=== PATIENT | male | born 1975 | race Caucasian/White ===

== ENCOUNTER 2017-02-11 18:42 | Emergency (ER) | payer MEDICARE, OTHER ==
[2017-02-11 19:04] VITALS: BP 154/60
--- NOTE | 2017-02-11 19:17 | ED Physician Documentation ---
Eye Problem - HPI Stated Complaint: L EYE LID SWELLING Chief Complaint: Eye Problems Additional Information: 41 yo M with h/o HTn and ESRD currently on HD who present with left upper lid swelling and redness that started Thursday 4 days ago but worsen the last 24 hours. No fever or chills reported. Pt denies any trauma or fall. No visual changes. Onset: days ago Associated symptoms: pain, eyelid swelling Location: left eye (left upper eyelid) Severity: moderate Apparent Injury: no Where: home Further Comments: no - ROS CONST: no problems CVS/RESP: none EYES/ENT: none - PAST HX Past History: hypertension, other (ESRD) Allergies/Adverse Reactions: Allergies Allergy/AdvReac Type Severity Reaction Status Date / Time docusate Allergy Verified 02/11/17 19:14 Home Medications: Ambulatory Orders Medication Instructions Recorded Sevelamer Carbonate [Renvela] 2,400 mg PO TID 01/21/13 Aspirin [Cuauhtemoc] 81 mg PO QD 12/19/13 Bisacodyl [Bisacodyl] 5 mg PO DAILY PRN 12/19/13 Isosorbide Mononitrate [Imdur] 30 mg PO DAILY 12/19/13 Albuterol Sulfate [Proair 90 mcg IH QID 02/11/17 Respiclick] Nitroglycerin [Nitroquick] 0.4 mg SL Q5M PRN 02/11/17 - SOCIAL HX Smoking History: cigarettes Drug Use: none - FAMILY HX Family History: none - VITAL SIGNS Vital Signs: Vital Signs Temp Pulse Resp BP Pulse Ox 62 18 154/60 98 02/11/17 18:42 02/11/17 18:42 02/11/17 18:42 02/11/17 18:42 - REVIEWED ASSESSMENTS Nursing Assessment Reviewed: Yes Vitals Reviewed: Yes Progress - Progress Progress: left upper eye lid swelling with erythema consistent with stye-- will go ahead and treat with antibiotics and warm compress Eye Problem Physical Exam - Physical Exam General Appearance: no acute distress Examined with Slit Lamp: No Eyelids: other (left upper lid erythema with swellings) Conjunctiva and Sclera: nml inspection Corneas: nml inspection EOM: intact Pupils: equal Head/ENT: nml inspection Skin: skin rash (left eyelid) Neck/Back: nml inspection Respiratory: no resp distress CVS: reg rate & rhythm Abdomen: non-tender Neuro/Psych: oriented x3 Discharge Clincal Impression: Hordeolum externum (stye) Qualifiers: Laterality: left Eyelid: upper Qualified Code(s): H00.014 - Hordeolum externum left upper eyelid Referrals: Milton Davis MD [Primary Care Provider] - 2 Days Home Medications: Ambulatory Orders Sevelamer Carbonate [Renvela] 2,400 mg PO TID 01/21/13 Aspirin [Cuauhtemoc] 81 mg PO QD 12/19/13 Bisacodyl [Bisacodyl] 5 mg PO DAILY PRN 12/19/13 Isosorbide Mononitrate [Imdur] 30 mg PO DAILY 12/19/13 Albuterol Sulfate [Proair Respiclick] 90 mcg IH QID 02/11/17 Nitroglycerin [Nitroquick] 0.4 mg SL Q5M PRN 02/11/17 Condition: Good Disposition: 01 HOME, SELF-CARE Decision to Admit: NO Decision Time: 19:21
== END 2017-02-11 19:20 | disposition home or self-care (01) ==
LOC: ED 18:42
DX: H00.014 Hordeolum externum left upper eyelid (principal)
CPT/HCPCS: 99283

== ENCOUNTER 2017-05-19 10:55 | Outpatient (CLI) | payer MEDICARE, OTHER | END 2017-05-19 14:06 | LOC: CARD 10:55 | PROVIDERS: ATTEND Internal Medicine Cardiovascular Disease | DX: I25.5 Ischemic cardiomyopathy (principal); F17.219 Nicotine dependence, cigarettes, with unspecified nicotine-induced disorders; E78.5 Hyperlipidemia, unspecified; I10 Essential (primary) hypertension; I12.9 Hypertensive chronic kidney disease with stage 1 through stage 4 chronic kidney disease, or unspecified chronic kidney disease; N18.9 Chronic kidney disease, unspecified; J44.9 Chronic obstructive pulmonary disease, unspecified | CPT/HCPCS: G0463 ==

== ENCOUNTER 2017-10-22 14:55 | Emergency (ER) | payer MEDICARE, OTHER ==
--- NOTE | 2017-10-22 14:59 | ED Physician Documentation ---
General Adult - HISTORIAN Historian: patient - HPI Stated Complaint: sore on abdomen Chief Complaint: General Adult Onset: days ago Timing: still present Severity: mild Further Comments: yes (Pt is a 42 yo male on hemodialysis, who has a small abscess on his abdomen that he noticed a few days ago. Pt has had no systemic sx and has used no meds for this.) - ROS CONST: no problems EYES/ENT: none CVS/RESP: none GI/: none MS/SKIN/LYMPH: other (lesion on abdomen) - PAST HX Past History: other (COPD, heart dz, HLD, HTN, renal dialysis) Allergies/Adverse Reactions: Allergies Allergy/AdvReac Type Severity Reaction Status Date / Time docusate Allergy Verified 02/11/17 19:14 Home Medications: Ambulatory Orders Medication Instructions Recorded Sevelamer Carbonate [Renvela] 2,400 mg PO TID 01/21/13 Aspirin [Cuauhtemoc] 81 mg PO QD 12/19/13 Bisacodyl [Bisacodyl] 5 mg PO DAILY PRN 12/19/13 Isosorbide Mononitrate [Imdur] 30 mg PO DAILY 12/19/13 Albuterol Sulfate [Proair 90 mcg IH QID 02/11/17 Respiclick] Nitroglycerin [Nitroquick] 0.4 mg SL Q5M PRN 02/11/17 - SOCIAL HX Smoking History: cigarettes - FAMILY HX Family History: No - VITAL SIGNS Vital Signs: Vital Signs Temp Pulse Resp BP Pulse Ox 154/60 02/11/17 19:20 - REVIEWED ASSESSMENTS Nursing Assessment Reviewed: Yes Vitals Reviewed: Yes Progress - Progress Progress: Topical abx to abd lesion 3x/daily x 7-10 days. General Adult Physical Exam - PHYSICAL EXAM GENERAL APPEARANCE: no distress NECK: normal inspection, supple RESPIRATORY: no resp distress, chest non-tender, breath sounds normal CVS: reg rate & rhythm, heart sounds normal ABDOMEN: soft, no organomegaly, normal bowel sounds BACK: normal inspection, no CVA tenderness SKIN: other (small, superficial, 1 cm abscess on L abdomen wall.) EXTREMITIES: non-tender, normal range of motion, no evidence of injury NEURO: oriented X3, motor nml, sensation nml Discharge Clincal Impression: small, superficial abscess on abdomen Referrals: Page Damon MD [Primary Care Provider] - Condition: Good Disposition: 01 HOME, SELF-CARE Decision to Admit: NO Decision Time: 15:14
[2017-10-22 15:31] VITALS: BP 150/68
== END 2017-10-22 15:30 | disposition home or self-care (01) ==
LOC: ED 14:55
DX: L02.211 Cutaneous abscess of abdominal wall (principal); Z99.2 Dependence on renal dialysis
CPT/HCPCS: 99282

== ENCOUNTER 2017-10-30 18:07 | Emergency (ER) | payer MEDICARE, OTHER ==
--- NOTE | 2017-10-30 18:27 | ED Physician Documentation ---
Ear Complaints - HISTORIAN Historian: patient - HPI Chief Complaint: Earache Further Comments: yes (42 year old male patient presents with complaint of "having trouble hearing". 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.) - ROS CONST: denies: no problems, recent illness, eye redness, eye itching, other CVS/RESP: none GI/: denies: black stools, nausea, vomiting, other MS/SKIN/LYMPH: none All Systems -: Yes - PAST HX Past History: other (ESRD on dialysis, [place], HTN, COPD) Allergies/Adverse Reactions: Allergies Allergy/AdvReac Type Severity Reaction Status Date / Time docusate Allergy Verified 10/30/17 18:29 Home Medications: Ambulatory Orders Medication Instructions Recorded Sevelamer Carbonate [Renvela] 2,400 mg PO TID 01/21/13 Aspirin [Cuauhtemoc] 81 mg PO QD 12/19/13 Bisacodyl [Bisacodyl] 5 mg PO DAILY PRN 12/19/13 Isosorbide Mononitrate [Imdur] 30 mg PO DAILY 12/19/13 Albuterol Sulfate [Proair 90 mcg IH QID 02/11/17 Respiclick] Nitroglycerin [Nitroquick] 0.4 mg SL Q5M PRN 02/11/17 - SOCIAL HX Smoking History: cigarettes - FAMILY HX Family History: No - VITAL SIGNS Vital Signs: Vital Signs Temp Pulse Resp BP Pulse Ox 150/68 10/22/17 15:30 - REVIEWED ASSESSMENTS Nursing Assessment Reviewed: Yes Vitals Reviewed: Yes Ear Complaint Physical Exam - EXAM General Appearance: no acute distress, alert Ear: auricle nml, 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
[2017-10-30 18:29] VITALS: BP 169/99
== END 2017-10-30 18:32 | disposition home or self-care (01) ==
LOC: ED 18:07
DX: H91.93 Unspecified hearing loss, bilateral (principal)
CPT/HCPCS: 99282

== ENCOUNTER 2018-04-06 08:00 | Emergency (ER) | payer MEDICARE, OTHER ==
[2018-04-06 08:19] VITALS: BP 160/107
--- NOTE | 2018-04-06 08:23 | ED Physician Documentation ---
General Adult - HISTORIAN Historian: patient - HPI Stated Complaint: R cheek pain Chief Complaint: General Adult Additional Information: 5 day history of a skin swelling. Has developed a nodule to the right cheek area. No fever or chills noted. Onset: days ago Timing: still present - ROS CONST: no problems. denies: fever, chills - PAST HX Past History: COPD, hypertension, renal disease (on dialysis), other (CAD with 2 FL) Other History: other (liver cirrhosis) Surgeries/Procedures: other (3 cardiac stints) Immunizations: referred to PCP Allergies/Adverse Reactions: Allergies Allergy/AdvReac Type Severity Reaction Status Date / Time docusate Allergy Verified 04/06/18 08:19 Home Medications: Ambulatory Orders Medication Instructions Recorded Aspirin [Cuauhtemoc] 81 mg PO QD 12/19/13 Bisacodyl [Bisacodyl] 5 mg PO DAILY PRN 12/19/13 Isosorbide Mononitrate [Imdur] 30 mg PO DAILY 12/19/13 Albuterol Sulfate [Proair 90 mcg IH QID 02/11/17 Respiclick] Nitroglycerin [Nitroquick] 0.4 mg SL Q5M PRN 02/11/17 Azithromycin 250 mg PO DIRECTED #6 tablet 04/06/18 Lactulose [Constulose] 15 ml PO BID 04/06/18 hydrALAZINE HCL [Apresoline] 10 mg PO TID 04/06/18 - SOCIAL HX Smoking History: less than 1 pack/day (1/2 ppd) Alcohol Use: none Drug Use: none - FAMILY HX Family History: Yes - VITAL SIGNS Vital Signs: Vital Signs Temp Pulse Resp BP Pulse Ox 97.5 F L 88 16 160/107 99 04/06/18 08:10 04/06/18 08:10 04/06/18 08:10 04/06/18 08:10 04/06/18 08:10 General Adult Physical Exam - PHYSICAL EXAM GENERAL APPEARANCE: mild distress EENT: other (right cheek has an area of induration, no fluctuance noted. Tender to palpation. 2.3cm in diameter.) NECK: normal inspection, thyroid normal RESPIRATORY: no resp distress, chest non-tender, breath sounds normal CVS: reg rate & rhythm, heart sounds normal NEURO: oriented X3, cognition normal Discharge Clincal Impression: Cellulitis and abscess of face Referrals: Page Damon MD [Primary Care Provider] - 2 Days Additional Instructions: Warm compress to the cheek area. Take azithromycin as directed. If symptoms get worse or you developed fever and chills, to follow-up with primary care provider or return to the ED. Condition: Stable Disposition: 01 HOME, SELF-CARE Decision to Admit: NO Date of Decison to Admit: 04/06/18 Decision Time: 08:38
== END 2018-04-06 08:48 | disposition home or self-care (01) ==
LOC: ED 08:00
DX: L03.211 Cellulitis of face (principal); L02.01 Cutaneous abscess of face
CPT/HCPCS: 99282

== ENCOUNTER 2018-06-21 12:22 | Emergency (ER) | payer MEDICARE, OTHER ==
[2018-06-21 12:43] VITALS: BP 185/107
--- NOTE | 2018-06-21 13:22 | ED Physician Documentation ---
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 Pt was about to enter his house last evening at 11:30 pm when, with his L hand on the door handle, he dropped something and squatted to pick it up, leaving his L hand on the door knob. When he went to stand he exerted downward pressure with the L hand on the knob while rising from the squat when something gave way. Pt has significant pain with attempts to move his L UE. PMHx includes renal failure on HD, Hepatic cirrhosis, HTN, GERD, [place] x 3 with stents, COPD.) - ROS CONST: no problems EYES/ENT: none CVS/RESP: none GI/: none MS/SKIN/LYMPH: other (L shoulder pain) - PAST HX Past History: other (ND x 3 w stents; COPD; Renal Failure on HD; Hepatic Cirrhosis; HTN; GERD) Surgeries/Procedures: cardiac stent Allergies/Adverse Reactions: Allergies Allergy/AdvReac Type Severity Reaction Status Date / Time docusate Allergy Verified 06/21/18 12:56 Home Medications: Ambulatory Orders Medication Instructions Recorded Aspirin [Cuauhtemoc] 81 mg PO QD 12/19/13 Bisacodyl 5 mg PO DAILY PRN 12/19/13 Isosorbide Mononitrate [Imdur] 30 mg PO DAILY 12/19/13 Albuterol Sulfate [Proair 90 mcg IH QID 02/11/17 Respiclick] Nitroglycerin [Nitroquick] 0.4 mg SL Q5M PRN 02/11/17 Azithromycin 250 mg PO DIRECTED #6 tablet 04/06/18 Lactulose [Constulose] 15 ml PO BID 04/06/18 hydrALAZINE HCL [Apresoline] 10 mg PO TID 04/06/18 - SOCIAL HX Smoking History: cigarettes - FAMILY HX Family History: No - VITAL SIGNS Vital Signs: Vital Signs Temp Pulse Resp BP Pulse Ox 98.0 F 88 16 185/107 97 06/21/18 12:31 06/21/18 12:31 06/21/18 12:31 06/21/18 12:31 06/21/18 12:31 - REVIEWED ASSESSMENTS Nursing Assessment Reviewed: Yes Vitals Reviewed: Yes Progress - Progress Progress: X-ray L shoulder: 3 views of the left shoulder demonstrate normal cortical margins. No evidence for fracture or dislocation. No soft tissue abnormality. Impression: No acute osseous process. Pt already has rx for Percocet Sling d/w Dr. Johny Alonzo, [facility] Follow up with Dr. Bernardo Gutierrez at [facility] (next to [facility]) 2nd floor, at 3 pm today 06-21-18. ED Results Lab/Radiology - Orders Orders: ED Orders Category Date Time Status SHOULDER 2 VIEWS OR MORE [RAD] Stat Exams 06/21/18 Taken General Adult Physical Exam - PHYSICAL EXAM GENERAL APPEARANCE: moderate distress EENT: pharynx normal NECK: normal inspection, supple RESPIRATORY: no resp distress, chest non-tender, rales CVS: reg rate & rhythm, heart sounds normal ABDOMEN: soft, no organomegaly, normal bowel sounds BACK: other (kyphosis) SKIN: warm/dry, normal color EXTREMITIES: other (L shoulder swelling (?deltoid rupture); unable to move L UE, 2nd pain.) NEURO: oriented X3, motor nml, sensation nml Discharge Clincal Impression: ? Deltoid rupture Left shoulder pain Qualifiers: Chronicity: acute Qualified Code(s): M25.512 - Pain in left shoulder Referrals: Page Damon MD [Primary Care Provider] - Condition: Stable Decision to Admit: NO Decision Time: 13:58
--- NOTE | 2018-06-21 15:21 | Diagnostic Imaging Report ---
JASON MCPHERSON [facility] [address] [facility] [address] [address] Report Submission Date: Jun 21, 2018 1:08:06 PM CDT Patient Study Name: AVIVA COLEMAN Date: Jun 21, 2018 12:36:17 PM CDT Modality Type: DX Gender: M Description: SHOULDER : 71 Institution: [facility] Physician: JASON MCPHERSON Examination: Plain film left shoulder History: LT SHOULDER PAIN AFTER FALL X 1 DAY AGO (Hx) Comparison exams: None provided Findings: 3 views of the left shoulder demonstrate normal cortical margins. No evidence for fracture or dislocation. No soft tissue abnormality Impression: No acute osseous process. Electronically signed on Jun 21, 2018 1:08:06 PM CDT by: Hank QUINTANILLA
== END 2018-06-21 14:18 ==
LOC: ED 12:22
DX: M25.512 Pain in left shoulder (principal); Z86.79 Personal history of other diseases of the circulatory system
CPT/HCPCS: 73030; 99282

== ENCOUNTER 2018-06-26 12:46 | Emergency (ER) | payer MEDICARE, OTHER ==
--- NOTE | 2018-06-26 13:17 | ED Physician Documentation ---
Foot Injury - HPI Stated Complaint: left foot pain Chief Complaint: Lower Extremity Problem Additional Information: Patient presents to ED with a 2 day history of increasing left foot pain and swelling. Patient states he has a cyst on the sole of his left foot which was biopsied by Podiatry a week ago . Two days ago he began to develop pain, redness and swelling. Onset: days ago (1 week) Where: home Severity: moderate Context: other (patient had biopsy of cyst on sole of foot a week ago ) Associated Symptoms:: other (pain) - ROS CONST: chills CVS/RESP: none NEURO: denies: headache, head injury, dizziness, other GI/: denies: problems urinating, nausea, vomiting, other MS/SKIN/LYMPH: none - PAST HX Past History: cardiac, diabetes Type 2, other (ESRD on dialysis) Allergies/Adverse Reactions: Allergies Allergy/AdvReac Type Severity Reaction Status Date / Time docusate Allergy Verified 06/26/18 13:11 Home Medications: Ambulatory Orders Medication Instructions Recorded Aspirin [Cuauhtemoc] 81 mg PO QD 12/19/13 Bisacodyl 5 mg PO DAILY PRN 12/19/13 Isosorbide Mononitrate [Imdur] 30 mg PO DAILY 12/19/13 Albuterol Sulfate [Proair 90 mcg IH QID 02/11/17 Respiclick] Nitroglycerin [Nitroquick] 0.4 mg SL Q5M PRN 02/11/17 Lactulose [Constulose] 15 ml PO BID 04/06/18 hydrALAZINE HCL [Apresoline] 10 mg PO TID 04/06/18 Amoxicillin/Potassium Clav 1 each PO BID 10 Days tablet 06/26/18 [Augmentin 500-125 Tablet] - SOCIAL HX Smoking History: cigarettes, greater than 1 pack/day Alcohol Use: heavy Drug Use: none - FAMILY HX Family History: cardiac disease - VITAL SIGNS Vital Signs: Vital Signs Temp Pulse Resp BP Pulse Ox 98.0 F 84 18 174/95 96 06/26/18 13:03 06/26/18 13:03 06/26/18 13:03 06/26/18 13:03 06/26/18 13:03 - REVIEWED ASSESSMENTS Nursing Assessment Reviewed: Yes Vitals Reviewed: Yes Progress - Results/Orders Results/Orders: Three views left foot CLINICAL HISTORY: Pain in the region of the ball of the foot. FINDINGS: Examination left foot in plantar, lateral and oblique views fails to demonstrate evidence of fracture or dislocation. Calcaneal spur is present at site of insertion of the Achilles tendon. There is apparent soft tissue mass or clinically described cyst at the level of the ball of the foot seen on the lateral image. IMPRESSION: Degenerative changes. No fracture. Electronically signed on Jun 26, 2018 1:47:26 PM CDT by: Tuan Verdugo - Progress Progress: 1400 Rocephin IM given for cellulitis. ED Results Lab/Radiology - Orders Orders: ED Orders Category Date Time Status FOOT 3 VIEWS OR MORE [RAD] Stat Exams 06/26/18 Ordered Foot Injury Physical Exam - Physical Exam General Appearance: no acute distress Foot: left foot: infection, pain, soft tissue tenderness (Plantar surface cyst with redness and swelling around biopsy site. ), swelling Ankle: left: non-tender, normal inspection Gait: limited by pain Neuro: abnml 2-point discrim. Vascular: no vascular compromise Tendons: tendon function nml Leg/Knee/Thigh: uninjured above ankle Skin: intact Head/ENT: nml inspection Neck/Back: nml inspection Resp/CVS: breath sounds nml, heart sounds nml Abdomen: non-tender Discharge Clincal Impression: Cellulitis Qualifiers: Site of cellulitis: extremity Site of cellulitis of extremity: lower extremity Laterality: left Qualified Code(s): L03.116 - Cellulitis of left lower limb Referrals: Page Damon MD [Primary Care Provider] - 2 Days Additional Instructions: Call Signal [facility]airer on Thursday to schedule an appointment for your surgery and let them know you are on antibiotics for infection. Decision to Admit: NO Date of Decison to Admit: 06/26/18 Decision Time: 14:20
[2018-06-26] MEDS ORDERED: Lidocaine 1% 20ml (SOUTH OMNI) 10 MG/ML ML IM ONE (13:46)
[2018-06-26] MEDS ORDERED: cefTRIAXone SODIUM 1 GM VIAL ONE (13:57)
[2018-06-26] MEDS ORDERED: Lidocaine 1% 5ml(IM or SUTURE)(PAIN CLINIC) ONE (13:57)
[2018-06-26 14:36] VITALS: BP 169/84
--- NOTE | 2018-06-26 18:03 | Diagnostic Imaging Report ---
THEO PETERSEN [facility] [address] [facility] [address] [address] Report Submission Date: Jun 26, 2018 1:47:26 PM CDT Patient Study Name: AVIVA COLEMAN Date: Jun 26, 2018 1:16:49 PM CDT Modality Type: DX Gender: M Description: LOWER EXTREMITY : 71 Institution: [facility] Physician: THEO PETERSEN Three views left foot CLINICAL HISTORY: Pain in the region of the ball of the foot. FINDINGS: Examination left foot in plantar, lateral and oblique views fails to demonstrate evidence of fracture or dislocation. Calcaneal spur is present at site of insertion of the Achilles tendon. There is apparent soft tissue mass or clinically described cyst at the level of the ball of the foot seen on the lateral image. IMPRESSION: Degenerative changes. No fracture. Electronically signed on Jun 26, 2018 1:47:26 PM CDT by: Tuan QUINTANILLA
== END 2018-06-26 14:32 ==
LOC: ED 12:46
DX: L03.116 Cellulitis of left lower limb (principal)
CPT/HCPCS: 73630; J0696; 96372; 99283

== ENCOUNTER 2018-12-01 12:42 | Emergency (ER) | payer MEDICARE, OTHER ==
--- NOTE | 2018-12-01 12:51 | ED Physician Documentation ---
General Adult - HISTORIAN Historian: patient - HPI Stated Complaint: swelling in bilateral lower legs x 2 weeks Chief Complaint: General Adult Onset: days ago (14) Timing: still present Severity: mild Further Comments: yes (He states he has had some lower leg swelling and redness x almost 2 weeks now and he felt the legs were "on fire" at dialysis today - he did show the physcican there and he told him to have the legs "checked out" and he came to the ER. Denies any fever. No significant pain other than when he is sitting up. He did stop his dialysis early today. He had no recent injury. Denies any shortness of air.) Last known Well Code/Unknown Code: Unknown - ROS CONST: no problems EYES/ENT: none MS/SKIN/LYMPH: rash NEURO/PSYCH: denies: headache - PAST HX Past History: renal disease Allergies/Adverse Reactions: Allergies Allergy/AdvReac Type Severity Reaction Status Date / Time docusate Allergy Verified 12/01/18 13:09 Home Medications: Ambulatory Orders Medication Instructions Recorded Isosorbide Mononitrate [Imdur] 30 mg PO DAILY 12/19/13 Albuterol Sulfate [Proair 90 mcg IH QID 02/11/17 Respiclick] Nitroglycerin [Nitroquick] 0.4 mg SL Q5M PRN 02/11/17 Lactulose [Constulose] 15 ml PO BID 04/06/18 hydrALAZINE HCL [Apresoline] 10 mg PO TID 04/06/18 Atorvastatin Calcium [Lipitor] 80 mg PO HS 12/01/18 Calcitriol [Rocaltrol] 1.5 mcg PO TID 12/01/18 Darbepoetin [place] in [place] 10 mcg IJ 12/01/18 [Aranesp] Lisinopril 10 mg PO DAILY 12/01/18 Omeprazole 40 mg PO 0700 12/01/18 Oxycodone HCl/Acetaminophen 1 each PO TID 12/01/18 [Percocet 7.5/325] Sucroferric Oxyhydroxide [Velphoro] 500 mg PO DAILY 12/01/18 - SOCIAL HX Smoking History: cigarettes Alcohol Use: none Drug Use: none - FAMILY HX Family History: No - VITAL SIGNS Vital Signs: Vital Signs Temp Pulse Resp BP Pulse Ox 169/84 06/26/18 14:34 - REVIEWED ASSESSMENTS Nursing Assessment Reviewed: Yes Vitals Reviewed: Yes General Adult Physical Exam - PHYSICAL EXAM GENERAL APPEARANCE: no distress EENT: eye inspection normal, no signs of dehydration NECK: normal inspection RESPIRATORY: no resp distress, chest non-tender, breath sounds normal CVS: reg rate & rhythm, heart sounds normal, equal pulses ABDOMEN: soft BACK: normal inspection, no CVA tenderness SKIN: warm/dry EXTREMITIES: non-tender, edema (bilateral lower legs daniel and 2+ pitting. Pulses + ) NEURO: oriented X3 Discharge Clincal Impression: Cellulitis of lower leg Referrals: Page Damon MD [Primary Care Provider] - 2 Days Comments: 1. Keflex 250 mg take 1 by mouth every 12 hours (due to Kidney status) 2. Keep legs elevated 3. Follow up with PCP in 2-4 days 4. Return to ER for any concerns Condition: Stable Disposition: 01 HOME, SELF-CARE Decision to Admit: NO Date of Decison to Admit: 12/01/18 Decision Time: 14:15
[2018-12-01 13:34] LABS: BASOPHILS % 0.3 (0.0-1.5); EOSINOPHILS % 2.5 % (0.0-6.8); MONOCYTES % 6.2 % (0.0-11.0); NEUTROPHILS # 3.2 # k/uL (1.4-7.7)
[2018-12-01 14:27] VITALS: BP 151/98
== END 2018-12-01 14:24 | disposition home or self-care (01) ==
LOC: ED 12:42
DX: L03.116 Cellulitis of left lower limb (principal); L03.115 Cellulitis of right lower limb; Z99.2 Dependence on renal dialysis; Z72.0 Tobacco use
CPT/HCPCS: 36415; 80053; 85025; 99283

== ENCOUNTER 2019-04-04 14:58 | Outpatient (CLI) | payer MEDICARE, OTHER ==
[2019-01-30 15:47] VITALS: BP 135/78
--- NOTE | 2019-04-04 19:29 | Diagnostic Imaging Report ---
BENJAMÍN BENNETT [facility] [address] [facility] [address] [place] [address]. [id number] Report Submission Date: Apr 04, 2019 3:58:31 PM CDT Patient Study Name: AVIVA COLEMAN Date: Apr 04, 2019 3:01:30 PM CDT Modality Type: DX Gender: M Description: CHEST 2VIEW : 71 Institution: [facility] Physician: BENJAMÍN BENNETT Exam: Chest two views. History: Cough. No previous studies are available for comparison. Lung vasquez are well aerated. Perihilar infiltrates are noted. Cardiac silhouette is enlarged with atherosclerotic plaques seen in the aorta. No pleural effusions are seen. Degenerate changes in thoracic spine are seen. Impression: Perihilar infiltrates. No pleural effusions. Cardiomegaly. Electronically signed on Apr 04, 2019 3:58:31 PM CDT by: Boy QUINTANILLA
== END 2019-04-04 15:00 ==
LOC: RAD 14:58
PROVIDERS: ATTEND Internal Medicine Nephrology
DX: R06.09 Other forms of dyspnea (principal); R50.9 Fever, unspecified
CPT/HCPCS: 71046